=== PATIENT | female | born 1945 ===

== ENCOUNTER 2016-09-05 08:30 | Day surgery (SDC) | payer OTHER ==
[2016-09-05 08:54] VITALS: BMI 31.4
[2016-09-05] MEDS ORDERED: Lactated Ringer's 500 ML IV ONE (12:00)
[2016-09-05] MEDS ORDERED: Propofol 10 mg/ml Inj (20 ML) ONE ×2 (12:02)
[2016-09-05] MEDS ORDERED: Lidocaine Hydrochloride 5 ML INJ ONE (12:02)
[2016-09-05 12:46] VITALS: TEMP 97.8
[2016-09-05 12:56] VITALS: O2SAT 100
[2016-09-05 14:09] VITALS: BP 142/56; PULSE 66; RESP 14
== END 2016-09-05 14:05 | disposition home or self-care (01) ==
LOC: C.ENDO 08:30
PROVIDERS: ATTEND Internal Medicine Gastroenterology
DX: K57.90 Diverticulosis of intestine, part unspecified, without perforation or abscess without bleeding (principal); K62.5 Hemorrhage of anus and rectum; K64.8 Other hemorrhoids; D12.2 Benign neoplasm of ascending colon